=== PATIENT | male | born 1975 | race African-American/Black ===

== ENCOUNTER 2018-08-27 02:23 | Emergency (ER) | payer SELFPAY | END 2018-08-27 03:35 | disposition home or self-care (01) | LOC: ERS 02:23 | DX: H57.12 Ocular pain, left eye (principal) | CPT/HCPCS: 99283 ==

== ENCOUNTER 2019-04-15 22:41 | Inpatient (IN) | payer OTHER, SELFPAY ==
[2019-04-15] MEDS ORDERED: Ondansetron PF 4 MG/2 ML Vial ONE (22:48)
[2019-04-15] MEDS ORDERED: Fentanyl 100 MCG/2 ML VIAL ONE ×2 (22:48→23:45)
[2019-04-15] MEDS ORDERED: Adacel (T-DAP) 0.5 ML SYRINGE ONE (22:52)
[2019-04-15 22:56] LABS: #Basophils 0.1 thou/uL (0.0-0.2); #Eosinphils 0.1 thou/uL (0.0-0.7); #Lymphocytes 3.7 thou/uL (1.20-3.40); #Monocytes 1.2 thou/uL (0.11-0.59); #Neutrophils 5.9 thou/uL (1.40-6.50); %Eosinophils 0.8 % (0.0-10.0); %Lymphocytes 33.8 % (21.0-51.0); %Monocytes 11.1 % (0.0-10.0); %Neutrophils 53.3 % (42.0-75.0); Hemoglobin 12.7 g/dL (14.0-18.0); Mean Corpuscular HGB CONC 32.2 g/dL (32.0-36.0); Mean Corpuscular Hemoglobin 28.1 pg (27.0-31.0); Mean Corpuscular Volume 87.3 fL (78.0-98.0); Mean Platelet Volume 7.4 fL (7.4-10.4); Platelet Count 420 thou/uL (130-400); Red Blood Cell (RBC) Count 4.53 mill/uL (4.70-6.10)
[2019-04-15 23:01] LABS: INR-International Normal Ratio 1.2
[2019-04-15 23:02] LABS: PTT 20.3 SEC (22.9-36.1)
[2019-04-15 23:09] LABS: ALT (SGPT) 121 U/L (8-55); AST (SGOT) 72 U/L (5-34); Albumin 4.2 g/dL (3.5-5.0); Alkaline Phosphatase 40 U/L (40-110); Anion Gap 31 mmol/L (10-20); BUN (Urea Nitrogen) 8 mg/dL (8.9-20.6); Bilirubin, Total 0.5 mg/dL (0.2-1.2); Calc. Creatinine Clearance 0 mL/min (70-130); Calcium 9.3 mg/dL (7.8-10.44); Carbon Dioxide 10 mmol/L (22-29); Chloride 104 mmol/L (98-107); Estimated GFR-MDRD 45; Globulin 3.1 g/dL (2.4-3.5); Glucose 66 mg/dL (70-105); Potassium 4.3 mmol/L (3.5-5.1); Protein, Total 7.3 g/dL (6.0-8.3); Sodium 141 mmol/L (136-145)
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
[2019-04-15 23:48] LABS: Acetaminophen Less than 6.0 mcg/mL (10.0-30.0); Alcohol 164 mg/dL (Less than 10); Salicylate Less than 8.0 mg/dL (15.0-30.0)
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
[2019-04-15 23:50] LABS: Bacteria/HPF None Seen HPF (None Seen); Bilirubin Negative (Negative); Blood, Urine Trace (Negative); Clarity Clear (Clear); Glucose, Urine (Dipstick) Normal (Negative); Leukocyte Negative Leu/uL (Negative); Nitrite Negative (Negative); Protein, Urine (Dipstick) 50 mg/dL (Neg-Trace); RBC/HPF 0-3 HPF (0-3); Squamous Epithelial None Seen HPF (0-3); WBC/HPF 0-3 HPF (0-3)
[2019-04-15 23:51] LABS: Amphetamine Not Detected (NotDetected); Barbiturates Screen Not Detected (NotDetected); Benzodiazepine Screen Not Detected (NotDetected); Cocaine Metabolite Screen Not Detected (NotDetected); Medtox Control Line Valid? VALID (VALID); Medtox Reader # READER 4; Methadone Not Detected (NotDetected); Methamphetamine Not Detected (NotDetected); Opiate Screen Not Detected (NotDetected); Oxycodone Screen Not Detected (NotDetected); Phencyclidine (PCP) Not Detected (NotDetected); THC/Cannabinoid Screen Not Detected (NotDetected); Tricyclic Screen Not Detected (NotDetected)
[2019-04-16] MEDS ORDERED: Ondansetron PF 4 MG/2 ML Vial IVP PRN ×2 (00:25→13:37)
[2019-04-16] MEDS ORDERED: Dextrose 50% Abboject 50 ML SYRINGE SLOW IVP PRN (00:25)
[2019-04-16] MEDS ORDERED: Promethazine HCl 25 MG/ML VIAL IM PRN ×2 (00:25→13:20)
[2019-04-16] MEDS ORDERED: hydrALAZINE 20 MG/ML VIAL SLOW IVP PRN (00:25)
[2019-04-16] MEDS ORDERED: Dextrose 5% in Water 1,000 ML IV PRN (00:25)
[2019-04-16] MEDS ORDERED: HumaLOG 300 UNITS/3 ML VIAL SC PRN (00:25)
[2019-04-16] MEDS ORDERED: traMADol HCl 50 MG TAB PO PRN ×2 (00:28)
[2019-04-16] MEDS ORDERED: Fentanyl 100 MCG/2 ML VIAL ONE ×4 (00:39→13:24)
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
[2019-04-16 01:03] LABS: Hemoglobin 11.2 g/dL (14.0-18.0)
[2019-04-16] MEDS: Sodium Chloride 0.9% 1,000 ML IV SCH ×4 (02:08→16:22)
[2019-04-16] MEDS: Morphine 4 MG/ML VIAL SLOW IVP PRN ×2 (02:13→04:34)
[2019-04-16 03:39] VITALS: BMI 36.6
[2019-04-16 03:59] LABS: #Lymphocytes 0.8 thou/uL (1.20-3.40); #Monocytes 0.9 thou/uL (0.11-0.59); #Neutrophils 9.2 thou/uL (1.40-6.50); %Basophils 0.3 % (0.0-1.0); %Eosinophils 0.1 % (0.0-10.0); %Lymphocytes 7.1 % (21.0-51.0); %Monocytes 8.6 % (0.0-10.0); %Neutrophils 83.9 % (42.0-75.0); Hemoglobin 11.3 g/dL (14.0-18.0); Mean Corpuscular HGB CONC 32.5 g/dL (32.0-36.0); Mean Corpuscular Volume 86.4 fL (78.0-98.0); Mean Platelet Volume 7.3 fL (7.4-10.4); Platelet Count 349 thou/uL (130-400); Red Blood Cell (RBC) Count 4.05 mill/uL (4.70-6.10)
[2019-04-16 04:24] LABS: Anion Gap 13 mmol/L (10-20); BUN (Urea Nitrogen) 7 mg/dL (8.9-20.6); Calc. Creatinine Clearance 91 mL/min (70-130); Calcium 7.8 mg/dL (7.8-10.44); Carbon Dioxide 22 mmol/L (22-29); Chloride 108 mmol/L (98-107); Estimated GFR-MDRD 56; Glucose 103 mg/dL (70-105); Phosphorus 3.9 mg/dL (2.3-4.7); Potassium 4.9 mmol/L (3.5-5.1); Sodium 138 mmol/L (136-145)
[2019-04-16] MEDS ORDERED: Acetaminophen 1,000 MG in Premix Bag 1 BAG IVPB SCH (06:00)
[2019-04-16] MEDS ORDERED: Senokot S 8.6-50 MG TAB PO SCH (09:00)
[2019-04-16] MEDS: Polyethylene Glycol 3350 17 GM Packet PO SCH (09:02)
[2019-04-16] MEDS: Acetaminophen 1,000 MG in Premix Bag 1 BAG IVPB SCH ×3 (09:02→20:36)
[2019-04-16] MEDS: Famotidine/PF 20 mg/2ml Vial SLOW IVP SCH ×2 (09:02→20:36)
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
[2019-04-16] MEDS ORDERED: Dexamethasone 20 MG/5 ML VIAL ONE (10:30)
[2019-04-16] MEDS ORDERED: Glycopyrrolate 0.2 MG/ML 5 ML SYRINGE ONE (10:30)
[2019-04-16] MEDS ORDERED: Rocuronium Bromide 10 MG/ML (10ML VIAL) ONE (10:30)
[2019-04-16] MEDS ORDERED: PHENYLEPHRINE-NS 100 MCG/ML 10 ML SYRINGE ONE (10:30)
[2019-04-16] MEDS ORDERED: Lidocaine 1% PF 5 ML VIAL ONE (10:30)
[2019-04-16] MEDS ORDERED: Ondansetron PF 4 MG/2 ML Vial ONE (10:30)
[2019-04-16] MEDS ORDERED: PROPOFOL 200 MG/20 ML VIAL ONE (10:30)
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
[2019-04-16] MEDS ORDERED: Phenylephrine HCL 10 MG/ML VIAL ONE (11:26)
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
[2019-04-16] MEDS ORDERED: PACU-Morphine 4MG/ML VIAL SLOW IVP PRN (13:20)
[2019-04-16] MEDS ORDERED: HYDROmorphone 2 MG/ML VIAL SLOW IVP PRN (13:20)
[2019-04-16] MEDS ORDERED: Ketorolac Tromethamine 30 MG/ML VIAL IVP PRN (13:20)
[2019-04-16] MEDS ORDERED: Promethazine HCl 25 MG/ML VIAL SLOW IVP PRN (13:20)
[2019-04-16] MEDS ORDERED: Meperidine HCl/PF 25 MG/ML VIAL SLOW IVP PRN (13:20)
[2019-04-16] MEDS ORDERED: Ondansetron HCl/PF 4 MG/2 ML Vial IVP PRN (13:20)
[2019-04-16] MEDS ORDERED: Morphine Sulfate 2 MG/ML SYRINGE SLOW IVP PRN (13:20)
[2019-04-16] MEDS ORDERED: Milk Of Magnesia 30 ML UDCUP PO PRN (13:37)
[2019-04-16] MEDS ORDERED: Ondansetron ODT 4 MG TAB PO PRN (13:37)
[2019-04-16] MEDS ORDERED: Acetaminophen 325 MG TAB PO PRN ×2 (13:37→23:59)
[2019-04-16] MEDS ORDERED: Bisacodyl 10 MG SUPP PR PRN (13:37)
[2019-04-16] MEDS ORDERED: Fleet Enema 133 ML BOT PR PRN (13:37)
[2019-04-16] MEDS ORDERED: Cepastat Lozenges 1 LOZ PO PRN (13:37)
[2019-04-16] MEDS ORDERED: traMADol HCl 50 MG TAB ONE (14:02)
[2019-04-16 14:29] LABS: Hemoglobin 11.5 g/dL (14.0-18.0); Platelet Count 371 thou/uL (130-400)
[2019-04-16] MEDS: CEFAZOLIN 2 GM in Premix Bag 1 BAG IVPB SCH (16:22)
[2019-04-16] MEDS: Ketorolac Tromethamine 30 MG/ML VIAL IVP SCH (19:31)
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
[2019-04-16] MEDS: Senokot S 8.6-50 MG TAB PO SCH (20:37)
[2019-04-16] MEDS: Gabapentin 300 MG CAP PO SCH (20:37)
[2019-04-16] MEDS: prednisoLONE 1% Ophth Susp 5 ml Bottle L EYE SCH (20:38)
[2019-04-16] MEDS: traMADol HCl 50 MG TAB PO SCH (20:46)
[2019-04-16] MEDS ORDERED: FLU VACC QS2019-20(6MOS UP)/PF 60 MCG/0.5 ML SYRINGE IM ONE (21:00)
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
[2019-04-17] MEDS: traMADol HCl 50 MG TAB PO SCH ×4 (01:09→20:26)
[2019-04-17] MEDS: Ketorolac Tromethamine 30 MG/ML VIAL IVP SCH ×4 (01:09→17:26)
[2019-04-17] MEDS: CEFAZOLIN 2 GM in Premix Bag 1 BAG IVPB SCH (01:10)
[2019-04-17 04:48] LABS: #Lymphocytes 0.7 thou/uL (1.20-3.40); #Monocytes 0.9 thou/uL (0.11-0.59); #Neutrophils 10.4 thou/uL (1.40-6.50); %Basophils 0.2 % (0.0-1.0); %Eosinophils 0.1 % (0.0-10.0); %Monocytes 7.3 % (0.0-10.0); %Neutrophils 86.5 % (42.0-75.0); Hemoglobin 9.3 g/dL (14.0-18.0); Mean Corpuscular HGB CONC 32.6 g/dL (32.0-36.0); Mean Corpuscular Hemoglobin 28.4 pg (27.0-31.0); Mean Corpuscular Volume 87.1 fL (78.0-98.0); Mean Platelet Volume 7.5 fL (7.4-10.4); Platelet Count 314 thou/uL (130-400); RBC Distribution Width 13.9 % (11.5-14.5); Red Blood Cell (RBC) Count 3.28 mill/uL (4.70-6.10)
[2019-04-17 05:14] LABS: Anion Gap 16 mmol/L (10-20); BUN (Urea Nitrogen) 12 mg/dL (8.9-20.6); Calc. Creatinine Clearance 96 mL/min (70-130); Calcium 7.5 mg/dL (7.8-10.44); Carbon Dioxide 19 mmol/L (22-29); Chloride 104 mmol/L (98-107); Estimated GFR-MDRD 60; Glucose 132 mg/dL (70-105); Phosphorus 3.5 mg/dL (2.3-4.7); Sodium 134 mmol/L (136-145)
[2019-04-17] MEDS: Sodium Chloride 0.9% 1,000 ML IV SCH (05:25)
[2019-04-17] MEDS: Acetaminophen 500 MG TAB PO SCH ×3 (05:25→17:36)
[2019-04-17 05:27] LABS: CK (CPK) 5859 U/L (30-200)
[2019-04-17] MEDS ORDERED: Acetaminophen 500 MG TAB PO SCH (06:00)
[2019-04-17] MEDS ORDERED: Sodium Bicarbonate 150 MEQ in Dextrose 5% in Water 1,000 ML IV SCH ×2 (07:00→14:54)
[2019-04-17] MEDS: Polyethylene Glycol 3350 17 GM Packet PO SCH (08:58)
[2019-04-17] MEDS: Senokot S 8.6-50 MG TAB PO SCH ×2 (08:58→20:25)
[2019-04-17] MEDS: Gabapentin 300 MG CAP PO SCH ×2 (08:59→20:25)
[2019-04-17] MEDS: Multivitamin W/ Minerals 1 TAB PO SCH (08:59)
[2019-04-17] MEDS: Ferrous Gluconate 324 MG TAB PO SCH ×2 (08:59→17:36)
[2019-04-17] MEDS: prednisoLONE 1% Ophth Susp 5 ml Bottle L EYE SCH ×5 (09:00→20:25)
[2019-04-17] MEDS: Enoxaparin Sodium 40 MG/0.4 ML SYRINGE SC SCH (09:01)
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
[2019-04-18] MEDS: Acetaminophen 500 MG TAB PO SCH ×5 (01:21→23:33)
[2019-04-18] MEDS: Ketorolac Tromethamine 30 MG/ML VIAL IVP SCH ×4 (01:21→17:39)
[2019-04-18] MEDS: traMADol HCl 50 MG TAB PO SCH ×5 (01:22→21:04)
[2019-04-18 05:09] LABS: Hemoglobin 7.3 g/dL (14.0-18.0); Mean Corpuscular HGB CONC 32.1 g/dL (32.0-36.0); Mean Corpuscular Hemoglobin 28.1 pg (27.0-31.0); Mean Corpuscular Volume 87.7 fL (78.0-98.0); Mean Platelet Volume 7.2 fL (7.4-10.4); Platelet Count 299 thou/uL (130-400); RBC Distribution Width 13.9 % (11.5-14.5); Red Blood Cell (RBC) Count 2.58 mill/uL (4.70-6.10); White Blood Cell (WBC) Count 11.4 thou/uL (4.8-10.8)
[2019-04-18 05:29] LABS: Anion Gap 14 mmol/L (10-20); BUN (Urea Nitrogen) 11 mg/dL (8.9-20.6); Calc. Creatinine Clearance 102 mL/min (70-130); Carbon Dioxide 28 mmol/L (22-29); Chloride 98 mmol/L (98-107); Estimated GFR-MDRD 64; Glucose 109 mg/dL (70-105); Magnesium 2.1 mg/dL (1.6-2.6); Potassium 4.6 mmol/L (3.5-5.1); Sodium 135 mmol/L (136-145)
[2019-04-18 05:55] LABS: CK (CPK) 11332 U/L (30-200)
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
[2019-04-18] MEDS: Ferrous Gluconate 324 MG TAB PO SCH ×2 (09:19→16:39)
[2019-04-18] MEDS: Ascorbic Acid 500 mg Chewable Tablet PO SCH ×2 (09:19→21:04)
[2019-04-18] MEDS: Senokot S 8.6-50 MG TAB PO SCH ×2 (09:19→21:03)
[2019-04-18] MEDS: Multivitamin W/ Minerals 1 TAB PO SCH (09:19)
[2019-04-18] MEDS: Polyethylene Glycol 3350 17 GM Packet PO SCH (09:20)
[2019-04-18] MEDS: Gabapentin 300 MG CAP PO SCH ×2 (09:20→21:04)
[2019-04-18] MEDS: prednisoLONE 1% Ophth Susp 5 ml Bottle L EYE SCH ×4 (09:45→21:05)
[2019-04-18] MEDS: Enoxaparin Sodium 40 MG/0.4 ML SYRINGE SC SCH (09:55)
[2019-04-18] MEDS: Sodium Chloride 0.9% 1,000 ML IV SCH ×3 (10:50→18:49)
--- NOTE | 2019-04-18 12:28 | PRG ---
DATE OF SERVICE: 04/18/2019 Mr. Ashraf has good pain control. He was able to get out of bed and ambulate with a walker. Vital signs; the patient is afebrile, pulse 119, respiratory rate 18, O2 saturation 97, and blood pressure 114/63. Laboratory shows hemoglobin 7.3, hematocrit 22.7. His creatine kinase 11,332. The patient is receiving 1 unit of packed red blood cells. He will continue with physical therapy. He will continue with hydration to help with the rhabdomyolysis and try to prevent any kidney problems. Probable discharge date either tomorrow or the day after. Job ID: [id number]
[2019-04-18] MEDS: Oxazepam 10 MG CAP PO SCH (21:14)
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
[2019-04-19] MEDS: Sodium Chloride 0.9% 1,000 ML IV SCH ×4 (01:21→15:26)
[2019-04-19] MEDS: traMADol HCl 50 MG TAB PO SCH ×4 (02:31→21:13)
[2019-04-19 04:31] LABS: Hemoglobin 6.9 g/dL (14.0-18.0); Mean Corpuscular HGB CONC 32.2 g/dL (32.0-36.0); Mean Corpuscular Hemoglobin 28.3 pg (27.0-31.0); Mean Corpuscular Volume 87.7 fL (78.0-98.0); Mean Platelet Volume 7.3 fL (7.4-10.4); Platelet Count 279 thou/uL (130-400); Red Blood Cell (RBC) Count 2.43 mill/uL (4.70-6.10); White Blood Cell (WBC) Count 8.2 thou/uL (4.8-10.8)
[2019-04-19 04:52] LABS: Anion Gap 11 mmol/L (10-20); BUN (Urea Nitrogen) 9 mg/dL (8.9-20.6); Calc. Creatinine Clearance 122 mL/min (70-130); Calcium 7.6 mg/dL (7.8-10.44); Carbon Dioxide 26 mmol/L (22-29); Chloride 104 mmol/L (98-107); Estimated GFR-MDRD 79; Glucose 100 mg/dL (70-105); Sodium 137 mmol/L (136-145)
[2019-04-19] MEDS: Oxazepam 10 MG CAP PO SCH ×3 (05:16→21:14)
[2019-04-19] MEDS: Acetaminophen 500 MG TAB PO SCH ×4 (05:16→22:37)
[2019-04-19 05:17] LABS: CK (CPK) 9904 U/L (30-200)
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
[2019-04-19] MEDS: Ferrous Sulfate 325 MG TAB PO SCH ×2 (09:27→18:34)
[2019-04-19] MEDS: Multivitamin W/ Minerals 1 TAB PO SCH (09:27)
[2019-04-19] MEDS: Thiamine 100 MG TAB PO SCH (09:28)
[2019-04-19] MEDS: Gabapentin 300 MG CAP PO SCH ×2 (09:28→21:14)
[2019-04-19] MEDS: Ascorbic Acid 500 mg Chewable Tablet PO SCH ×2 (09:28→21:14)
[2019-04-19] MEDS: Polyethylene Glycol 3350 17 GM Packet PO SCH (09:31)
[2019-04-19] MEDS: Senokot S 8.6-50 MG TAB PO SCH ×2 (09:32→21:14)
[2019-04-19] MEDS: Folic Acid 1 MG TAB PO SCH (09:35)
[2019-04-19] MEDS: Enoxaparin Sodium 40 MG/0.4 ML SYRINGE SC SCH (09:36)
[2019-04-19] MEDS: prednisoLONE 1% Ophth Susp 5 ml Bottle L EYE SCH ×4 (10:50→21:14)
[2019-04-19] MEDS: Ferrous Gluconate 324 MG TAB PO SCH (10:51)
[2019-04-19] MEDS: Cyclobenzaprine 10 MG TAB PO PRN ×2 (13:16→22:39)
[2019-04-19 14:29] LABS: Hemoglobin 7.6 g/dL (14.0-18.0)
--- NOTE | 2019-04-19 14:40 | PRG ---
DATE OF SERVICE: 04/19/2019 SUBJECTIVE: The patient has good pain control. He states that he does have some purulent drainage, where he has 1 staple from a laceration over the right middle knuckle, but otherwise is feeling good. He had 1 unit of blood infused yesterday because his hemoglobin was 7.3. When they inderjit his blood work this morning, his hemoglobin was 6.9, so the patient just finished receiving another unit of blood and they are going to draw another hemoglobin and hematocrit this afternoon. OBJECTIVE: VITAL SIGNS: The patient has been afebrile. His vital signs have been stable except for a little tachycardia. His last pulse rate was 126 and the last time it was 111. EXTREMITIES: The dressings have been changed. The patient does have small purulence over the dorsum of the right middle finger knuckle. The incisions over the right forearm and the right hip and thigh are healing well. PLAN: I explained to the patient we need to make sure that his blood count is going in the right direction, after which he can be discharged. He will follow up in the office with me in 2 weeks. Job ID: [id number]
[2019-04-19] MEDS ORDERED: Sulfameth/Trimethoprim DS 800-160mg TAB PO SCH (21:45)
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
[2019-04-20] MEDS: traMADol HCl 50 MG TAB PO SCH ×5 (02:47→20:25)
[2019-04-20] MEDS: Oxazepam 10 MG CAP PO SCH ×3 (03:59→20:26)
[2019-04-20] MEDS: Acetaminophen 500 MG TAB PO SCH ×3 (05:01→17:49)
[2019-04-20 05:16] LABS: Band 3 % (5-11); Eosinophils 1 % (0-10); Hemoglobin 7.8 g/dL (14.0-18.0); Lymphocytes 16 % (21-51); MDiff Complete? YES; Mean Corpuscular HGB CONC 32.3 g/dL (32.0-36.0); Mean Corpuscular Hemoglobin 28.4 pg (27.0-31.0); Mean Corpuscular Volume 87.9 fL (78.0-98.0); Mean Platelet Volume 7.3 fL (7.4-10.4); Monocytes 12 % (0-10); Neutrophil 68 % (42-75); Nucleated RBC 4 % (0); Platelet Count 347 thou/uL (130-400); Platelet Morphology Comment Appears Adequate; RBC Distribution Width 14.1 % (11.5-14.5); Red Blood Cell (RBC) Count 2.74 mill/uL (4.70-6.10); White Blood Cell (WBC) Count 9.4 thou/uL (4.8-10.8)
[2019-04-20 05:26] LABS: Anion Gap 11 mmol/L (10-20); BUN (Urea Nitrogen) 7 mg/dL (8.9-20.6); Calc. Creatinine Clearance 112 mL/min (70-130); Calcium 8.2 mg/dL (7.8-10.44); Carbon Dioxide 28 mmol/L (22-29); Chloride 101 mmol/L (98-107); Estimated GFR-MDRD 71; Glucose 87 mg/dL (70-105); Magnesium 1.7 mg/dL (1.6-2.6); Phosphorus 3.2 mg/dL (2.3-4.7); Sodium 136 mmol/L (136-145)
[2019-04-20 05:38] LABS: CK (CPK) 7110 U/L (30-200)
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
[2019-04-20] MEDS: Thiamine 100 MG TAB PO SCH (09:11)
[2019-04-20] MEDS: Folic Acid 1 MG TAB PO SCH (09:12)
[2019-04-20] MEDS: Ascorbic Acid 500 mg Chewable Tablet PO SCH ×2 (09:12→20:25)
[2019-04-20] MEDS: Gabapentin 300 MG CAP PO SCH ×3 (09:12→20:26)
[2019-04-20] MEDS: Multivitamin W/ Minerals 1 TAB PO SCH (09:12)
[2019-04-20] MEDS: Ferrous Sulfate 325 MG TAB PO SCH ×2 (09:12→17:49)
[2019-04-20] MEDS: Senokot S 8.6-50 MG TAB PO SCH ×2 (09:12→20:25)
[2019-04-20] MEDS: Sulfameth/Trimethoprim DS 800-160mg TAB PO SCH ×2 (09:13→20:26)
[2019-04-20] MEDS: Polyethylene Glycol 3350 17 GM Packet PO SCH (09:14)
[2019-04-20] MEDS: prednisoLONE 1% Ophth Susp 5 ml Bottle L EYE SCH ×4 (09:15→20:26)
[2019-04-20] MEDS: cloNIDine 0.1 MG TAB PO SCH ×3 (09:22→20:26)
[2019-04-20] MEDS: Enoxaparin Sodium 40 MG/0.4 ML SYRINGE SC SCH (09:24)
[2019-04-20] MEDS: Cyclobenzaprine 10 MG TAB PO PRN (10:44)
[2019-04-20] MEDS ORDERED: Morphine 4 MG/ML VIAL SLOW IVP SCH (10:45)
--- NOTE | 2019-04-20 10:49 | ULT ---
EXAM: Bilateral lower extremity venous Doppler US HISTORY: bilateral lower extremity edema and pain FINDINGS: Grayscale, color-flow, Doppler evaluation, spectral analysis of the bilateral lower extremities venou s structures is performed with 2-D imaging. The bilateral common femoral, superficial femoral, popliteal, posterior tibial, proximal greater saphenous and profunda femoral veins are imaged. There is normal luminal compressibility, flow, and augmentation in the visualized deep venous structu res of the bilateral lower extremities. IMPRESSION: No evidence of a deep vein thrombosis in either lower extremity.
--- NOTE | 2019-04-20 17:16 | PRG ---
DATE OF SERVICE: 04/20/2019 The patient states that he is wanting to go home. He has pain, but it is controlled with p.o. medication. The patient did have a temperature up to 100.2, but his last one, he was afebrile. Vital signs were stable. The CBC shows white count of 9.4, hemoglobin 7.8, and hematocrit 24.1. His creatine kinase is down to 7000. The small abscess over the right 3rd metacarpal region is open and draining. There is a small pack in it. His right thigh is swollen, but not tense and the patient is able to flex and extend his right knee with normal amount of discomfort considering his surgery. The patient can be discharged as far as I am concerned with Bactrim DS twice a day for a week. He will follow up in my office in a week. Job ID: [id number]
[2019-04-21] MEDS: Acetaminophen 500 MG TAB PO SCH ×4 (01:47→17:32)
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
[2019-04-21] MEDS: Oxazepam 10 MG CAP PO SCH ×2 (03:32→12:13)
[2019-04-21] MEDS: traMADol HCl 50 MG TAB PO SCH ×3 (03:32→15:14)
[2019-04-21] MEDS: cloNIDine 0.1 MG TAB PO SCH ×3 (03:33→15:16)
[2019-04-21 05:24] LABS: Anion Gap 13 mmol/L (10-20); BUN (Urea Nitrogen) 9 mg/dL (8.9-20.6); Calc. Creatinine Clearance 106 mL/min (70-130); Calcium 8.6 mg/dL (7.8-10.44); Carbon Dioxide 27 mmol/L (22-29); Chloride 98 mmol/L (98-107); Estimated GFR-MDRD 67; Glucose 107 mg/dL (70-105); Magnesium 1.7 mg/dL (1.6-2.6); Phosphorus 3.3 mg/dL (2.3-4.7); Sodium 134 mmol/L (136-145)
[2019-04-21 05:36] LABS: Band 8 % (5-11); Hemoglobin 7.8 g/dL (14.0-18.0); Lymphocytes 22 % (21-51); MDiff Complete? YES; Mean Corpuscular HGB CONC 32.5 g/dL (32.0-36.0); Mean Corpuscular Hemoglobin 28.5 pg (27.0-31.0); Mean Corpuscular Volume 87.9 fL (78.0-98.0); Mean Platelet Volume 7.1 fL (7.4-10.4); Monocytes 11 % (0-10); Neutrophil 59 % (42-75); Platelet Count 405 thou/uL (130-400); RBC Distribution Width 14.4 % (11.5-14.5); Red Blood Cell (RBC) Count 2.73 mill/uL (4.70-6.10); White Blood Cell (WBC) Count 9.2 thou/uL (4.8-10.8)
[2019-04-21 05:41] LABS: CK (CPK) 4369 U/L (30-200)
[2019-04-21] MEDS: Ascorbic Acid 500 mg Chewable Tablet PO SCH (08:29)
[2019-04-21] MEDS: Thiamine 100 MG TAB PO SCH (08:31)
[2019-04-21] MEDS: Multivitamin W/ Minerals 1 TAB PO SCH (08:31)
[2019-04-21] MEDS: Folic Acid 1 MG TAB PO SCH (08:31)
[2019-04-21] MEDS: Sulfameth/Trimethoprim DS 800-160mg TAB PO SCH (08:31)
[2019-04-21] MEDS: Gabapentin 300 MG CAP PO SCH ×2 (08:31→15:14)
[2019-04-21] MEDS: Ferrous Sulfate 325 MG TAB PO SCH ×2 (08:31→17:32)
[2019-04-21] MEDS: Senokot S 8.6-50 MG TAB PO SCH (08:37)
[2019-04-21] MEDS: Polyethylene Glycol 3350 17 GM Packet PO SCH (08:38)
[2019-04-21] MEDS: prednisoLONE 1% Ophth Susp 5 ml Bottle L EYE SCH ×2 (09:34→14:33)
[2019-04-21] MEDS: Enoxaparin Sodium 40 MG/0.4 ML SYRINGE SC SCH (09:34)
[2019-04-21] MEDS: Cyclobenzaprine 10 MG TAB PO PRN ×2 (09:34→17:32)
[2019-04-21 16:56] VITALS: BP 118/68; TEMP 99.3
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
== END 2019-04-21 18:05 | disposition home or self-care (01) | DRG 956 ==
LOC: ERS 22:41 → CCU 04-16 01:39 → EEVIPCON 04-16 01:39 → SURG A 04-16 15:44
PROVIDERS: ADMIT Surgery; ATTEND Surgery
PROC: 3E0234Z Introduction of Serum, Toxoid and Vaccine into Muscle, Percutaneous Approach (ICD-10-PCS; 2019-04-15)
PROC: 30233N1 Transfusion of Nonautologous Red Blood Cells into Peripheral Vein, Percutaneous Approach (ICD-10-PCS; 2019-04-15)
PROC: 0QH806Z Insertion of Intramedullary Internal Fixation Device into Right Femoral Shaft, Open Approach (ICD-10-PCS; principal; 2019-04-16)
PROC: 0PSK04Z Reposition Right Ulna with Internal Fixation Device, Open Approach (ICD-10-PCS; 2019-04-16)
PROC: 0X9J0ZZ Drainage of Right Hand, Open Approach (ICD-10-PCS; 2019-04-19)
DX: S72.34 Spiral fracture of shaft of femur (principal); S52.251B Displaced comminuted fracture of shaft of ulna, right arm, initial encounter for open fracture type I or II; N17.9 Acute kidney failure, unspecified; M62.82 Rhabdomyolysis; D62 Acute posthemorrhagic anemia; L02.511 Cutaneous abscess of right hand; E86.0 Dehydration; F10.129 Alcohol abuse with intoxication, unspecified; I10 Essential (primary) hypertension; Y90.6 Blood alcohol level of 120-199 mg/100 ml; R00.0 Tachycardia, unspecified; Z23 Encounter for immunization; W34.00XA Accidental discharge from unspecified firearms or gun, initial encounter
CPT/HCPCS: 36415; 36430; 71045; 72170; 76000; 80048; 80053; 80306; 80307; 81003; 81015; 82550; 83735; 84100; 85007; 85014; 85018; 85025; 85027; 85610; 85730; 86850; 86900; 86901; 87070; 87077; 87186; 87205; 90471; 90715; 93005; 93970; 96361; 96365; 96374; 96375; 96376; C1713; C1769; G0390; J0131; J0690; J1100; J1650; J1885; J2001; J2270; J2370; J2405; J2704; J3010; J7070; P9016; S0028

== ENCOUNTER 2019-04-28 13:31 | Inpatient (IN) | payer OTHER ==
[2019-04-28] MEDS ORDERED: Bacitracin 1 PK ONE (14:39)
[2019-04-28 15:00] LABS: #Eosinphils 0.1 thou/uL (0.0-0.7); #Lymphocytes 1.7 thou/uL (1.20-3.40); #Monocytes 0.8 thou/uL (0.11-0.59); #Neutrophils 6.7 thou/uL (1.40-6.50); %Basophils 0.4 % (0.0-1.0); %Eosinophils 0.8 % (0.0-10.0); %Lymphocytes 18.6 % (21.0-51.0); %Monocytes 8.5 % (0.0-10.0); %Neutrophils 71.7 % (42.0-75.0); Hemoglobin 9.7 g/dL (14.0-18.0); Mean Corpuscular HGB CONC 32.2 g/dL (32.0-36.0); Mean Corpuscular Hemoglobin 27.4 pg (27.0-31.0); Mean Corpuscular Volume 85.2 fL (78.0-98.0); Mean Platelet Volume 6.5 fL (7.4-10.4); Platelet Count 1006 thou/uL (130-400); RBC Distribution Width 16.2 % (11.5-14.5); Red Blood Cell (RBC) Count 3.52 mill/uL (4.70-6.10); White Blood Cell (WBC) Count 9.4 thou/uL (4.8-10.8)
[2019-04-28 15:08] LABS: ALT (SGPT) 104 U/L (8-55); AST (SGOT) 53 U/L (5-34); Albumin 3.9 g/dL (3.5-5.0); Alkaline Phosphatase 91 U/L (40-110); Anion Gap 16 mmol/L (10-20); Anisocytosis SLIGHT = 6-15 cells (100X) (0-5/hpf); BUN (Urea Nitrogen) 15 mg/dL (8.9-20.6); Bilirubin, Total 0.9 mg/dL (0.2-1.2); Calc. Creatinine Clearance 0 mL/min (70-130); Calcium 9.3 mg/dL (7.8-10.44); Carbon Dioxide 23 mmol/L (22-29); Chloride 104 mmol/L (98-107); Estimated GFR-MDRD 51; Globulin 3.3 g/dL (2.4-3.5); Glucose 117 mg/dL (70-105); MDiff Complete? YES; Platelet Morphology Comment Appears Increased; Polychromasia MODERATE = 3-4 cells (100X) (0-2/hpf); Potassium 4.9 mmol/L (3.5-5.1); Protein, Total 7.2 g/dL (6.0-8.3); Sodium 138 mmol/L (136-145); Target Cells SLIGHT = 2-5 cells (100X) (0-1/hpf)
--- NOTE | 2019-04-28 16:32 | RAD ---
XR Chest Pa Lat STANDARD History: Cough and night sweats Comparison: Chest radiograph April 15, 2019 Findings: Lungs are clear. No pneumothorax or effusion. Cardiac silhouette and mediastinal contours a re within normal limits. No acute osseous abnormality. Impression: No acute intrathoracic abnormality.
[2019-04-28] MEDS ORDERED: hydrALAZINE 20 MG/ML VIAL SLOW IVP PRN ×2 (16:52→20:59)
[2019-04-28] MEDS ORDERED: Dextrose 50% Abboject 50 ML SYRINGE SLOW IVP PRN ×2 (16:52→20:59)
[2019-04-28] MEDS ORDERED: Ondansetron PF 4 MG/2 ML Vial IVP PRN ×2 (16:52→21:00)
[2019-04-28] MEDS ORDERED: Dextrose 5% in Water 1,000 ML IV PRN ×2 (16:52→20:58)
[2019-04-28] MEDS ORDERED: traMADol HCl 50 MG TAB PO PRN ×4 (16:56→21:01)
[2019-04-28] MEDS ORDERED: Cyclobenzaprine 10 MG TAB PO PRN ×3 (16:56→21:01)
[2019-04-28] MEDS ORDERED: Sodium Chloride 0.9% 1,000 ML IV SCH (17:00)
[2019-04-28] MEDS ORDERED: Piperacillin/Tazobactam 3.375 GM in Sodium Chloride 0.9% 100 ML IVPB SCH (18:00)
[2019-04-28] MEDS ORDERED: Acetaminophen 500 MG TAB PO SCH (18:00)
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
[2019-04-28] MEDS ORDERED: Acetaminophen/Codeine 30-300mg Tablet PO PRN (19:01)
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
[2019-04-28 19:18] LABS: Bilirubin Negative (Negative); Blood, Urine Negative (Negative); Clarity Clear (Clear); Glucose, Urine (Dipstick) Normal (Negative); Leukocyte Negative Leu/uL (Negative); Nitrite Negative (Negative); Protein, Urine (Dipstick) 10 mg/dL (Neg-Trace); Urobilinogen Greater than 12 mg/dL (Less than 2)
[2019-04-28 20:28] VITALS: BMI 32.5
[2019-04-28 20:39] LABS: Lactic Acid 1.1 mmol/L (0.5-2.2)
[2019-04-28] MEDS ORDERED: Famotidine 20 MG TAB PO SCH (21:00)
[2019-04-28] MEDS: Famotidine 20 MG TAB PO SCH (21:13)
[2019-04-28] MEDS: Piperacillin/Tazobactam 3.375 GM in Sodium Chloride 0.9% 100 ML IVPB SCH (21:17)
[2019-04-28] MEDS: Sodium Chloride 0.9% 1,000 ML IV SCH (21:17)
[2019-04-29] MEDS: Acetaminophen 500 MG TAB PO SCH ×3 (00:02→12:00)
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
[2019-04-29 04:48] LABS: #Basophils 0.1 thou/uL (0.0-0.2); #Eosinphils 0.1 thou/uL (0.0-0.7); #Lymphocytes 2.4 thou/uL (1.20-3.40); #Monocytes 1.2 thou/uL (0.11-0.59); #Neutrophils 9.2 thou/uL (1.40-6.50); %Basophils 0.6 % (0.0-1.0); %Eosinophils 0.9 % (0.0-10.0); %Lymphocytes 18.3 % (21.0-51.0); %Monocytes 9.1 % (0.0-10.0); %Neutrophils 71.1 % (42.0-75.0); Hemoglobin 8.8 g/dL (14.0-18.0); Mean Corpuscular HGB CONC 33.3 g/dL (32.0-36.0); Mean Corpuscular Hemoglobin 28.6 pg (27.0-31.0); Mean Platelet Volume 6.4 fL (7.4-10.4); Platelet Count 811 thou/uL (130-400); RBC Distribution Width 16.1 % (11.5-14.5); Red Blood Cell (RBC) Count 3.08 mill/uL (4.70-6.10); White Blood Cell (WBC) Count 12.9 thou/uL (4.8-10.8)
[2019-04-29 05:08] LABS: Anion Gap 14 mmol/L (10-20); BUN (Urea Nitrogen) 15 mg/dL (8.9-20.6); Calc. Creatinine Clearance 89 mL/min (70-130); Calcium 8.3 mg/dL (7.8-10.44); Carbon Dioxide 19 mmol/L (22-29); Chloride 109 mmol/L (98-107); Estimated GFR-MDRD 63; Glucose 112 mg/dL (70-105); Potassium 4.5 mmol/L (3.5-5.1); Sodium 137 mmol/L (136-145)
[2019-04-29] MEDS: Piperacillin/Tazobactam 3.375 GM in Sodium Chloride 0.9% 100 ML IVPB SCH ×3 (05:10→15:34)
[2019-04-29] MEDS: Sodium Chloride 0.9% 1,000 ML IV SCH ×3 (07:41→12:05)
[2019-04-29] MEDS ORDERED: Promethazine HCl 25 MG/ML VIAL SLOW IVP PRN ×2 (07:57→08:59)
[2019-04-29] MEDS ORDERED: Ondansetron HCl/PF 4 MG/2 ML Vial IVP PRN ×2 (07:57→08:59)
[2019-04-29] MEDS ORDERED: Promethazine HCl 25 MG/ML VIAL IM PRN ×2 (07:57→08:59)
[2019-04-29] MEDS ORDERED: Fentanyl 100 MCG/2 ML VIAL ONE ×2 (08:29→09:02)
[2019-04-29] MEDS ORDERED: HYDROmorphone 2 MG/ML VIAL SLOW IVP PRN (08:59)
[2019-04-29] MEDS ORDERED: Aspirin 325 mg Enteric Coated Tablet PO SCH ×2 (09:00)
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
[2019-04-29] MEDS: Famotidine 20 MG TAB PO SCH (09:17)
[2019-04-29] MEDS ORDERED: Dexamethasone 20 MG/5 ML VIAL ONE (12:17)
[2019-04-29] MEDS ORDERED: PROPOFOL 200 MG/20 ML VIAL ONE (12:17)
[2019-04-29] MEDS ORDERED: Lidocaine 1% PF 5 ML VIAL ONE (12:17)
[2019-04-29] MEDS ORDERED: Ondansetron PF 4 MG/2 ML Vial ONE (12:17)
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
--- NOTE | 2019-04-29 14:16 | ULT ---
US Venous Doppler Bilat History: Lower extremity edema Comparison: Lower extremity ultrasound April 20, 2019 Findings: Real-time grayscale, color, and spectral analysis of the bilateral lower extremity venous s ystem was performed. The common femoral, femoral, proximal portions greater saphenous and deep femoral veins as well as the popliteal and posterior tibial veins were interrogated. Normal flow, augmentation, and compression. Impression: No deep venous thrombosis.
--- NOTE | 2019-04-29 14:17 | ULT ---
US Renal Bilateral STANDARD History: Obstruction Comparison: None. Findings: Real-time grayscale and color evaluation of the kidneys and urinary bladder was performed. Right kidney measures 10.9 x 5.1 x 5.4 cm and the left kidney measures 12.3 x 6.1 x 6.3 cm. The prevoid urinary bladder volume is 39 mL. No renal mass, hydronephrosis, or abnormal calcifications. Impression: No evidence for obstructive uropathy.
[2019-04-29 15:52] VITALS: BP 116/54; TEMP 97.4
[2019-04-29] MEDS ORDERED: FLU VACC QS2019-20(6MOS UP)/PF 60 MCG/0.5 ML SYRINGE IM ONE (21:00)
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
== END 2019-04-29 18:59 | disposition home or self-care (01) | DRG 580 ==
LOC: ERS 13:31 → SURG B 18:42 → ERS 18:42 → SURG B 18:56
PROVIDERS: ADMIT Specialist; ATTEND Specialist
PROC: 0JBJ0ZZ Excision of Right Hand Subcutaneous Tissue and Fascia, Open Approach (ICD-10-PCS; principal; 2019-04-29)
DX: L02.511 Cutaneous abscess of right hand (principal); M62.82 Rhabdomyolysis; N17.9 Acute kidney failure, unspecified; D62 Acute posthemorrhagic anemia; M65.841 Other synovitis and tenosynovitis, right hand; E87.5 Hyperkalemia; D47.3 Essential (hemorrhagic) thrombocythemia; M62.838 Other muscle spasm
CPT/HCPCS: 36415; 71046; 76770; 80048; 80053; 81003; 82550; 83605; 85025; 87040; 87070; 87077; 87186; 87205; 93005; 93970; 96360; 96361; J1100; J2001; J2405; J2543; J2704; J3010; J3490

== ENCOUNTER 2022-07-04 01:33 | Inpatient (IN) | payer SELFPAY ==
[2022-07-04] MEDS ORDERED: Morphine 4 MG/ML VIAL ONE (01:38)
[2022-07-04 01:56] LABS: #Eosinphils 0.2 thou/uL (0.0-0.7); #Lymphocytes 4.5 thou/uL (1.20-3.40); #Monocytes 1.1 thou/uL (0.11-0.59); #Neutrophils 3.4 thou/uL (1.40-6.50); %Basophils 0.4 % (0.0-1.0); %Eosinophils 2.6 % (0.0-10.0); %Lymphocytes 48.4 % (21.0-51.0); %Monocytes 11.7 % (0.0-10.0); %Neutrophils 36.9 % (42.0-75.0); Hemoglobin 15.3 g/dL (14.0-18.0); Mean Corpuscular HGB CONC 34.1 g/dL (32.0-36.0); Mean Corpuscular Hemoglobin 30.4 pg (27.0-31.0); Mean Platelet Volume 8.7 fL (7.4-10.4); Platelet Count 180 10x3/uL (130-400); RBC Distribution Width 13.5 % (11.5-14.5); Red Blood Cell (RBC) Count 5.03 mill/uL (4.70-6.10); White Blood Cell (WBC) Count 9.3 10x3/uL (4.8-10.8)
[2022-07-04] MEDS ORDERED: Lidocaine 1% w/Epinephrine 1:100K 20 ML VIAL ONE (02:05)
[2022-07-04 02:11] LABS: Prothrombin Time 13.8 sec (12.0-14.7)
[2022-07-04 02:18] LABS: ALT (SGPT) 70 U/L (8-55); AST (SGOT) 47 U/L (5-34); Albumin 4.5 g/dL (3.5-5.0); Alkaline Phosphatase 58 U/L (40-110); Anion Gap 26 mmol/L (10-20); BUN (Urea Nitrogen) 22 mg/dL (8.9-20.6); Bilirubin, Total 0.4 mg/dL (0.2-1.2); Calc. Creatinine Clearance 0 mL/min (70-130); Calcium 9.1 mg/dL (7.8-10.44); Carbon Dioxide 10 mmol/L (22-29); Chloride 106 mmol/L (98-107); Estimated GFR 42; Globulin 3.3 g/dL (2.4-3.5); Glucose 86 mg/dL (70-105); Lipase 41 U/L (8-78); Potassium 3.4 mmol/L (3.5-5.1); Protein, Total 7.8 g/dL (6.0-8.3); Sodium 139 mmol/L (136-145)
[2022-07-04 02:41] LABS: PTT 22.6 sec (22.9-36.1)
[2022-07-04] MEDS ORDERED: Dextrose 50% Abboject 50 ML SYRINGE SLOW IVP PRN (02:45)
[2022-07-04] MEDS ORDERED: hydrALAZINE 20 MG/ML VIAL SLOW IVP PRN (02:45)
[2022-07-04] MEDS ORDERED: Dextrose 5% in Water 1,000 ML IV PRN (02:45)
[2022-07-04] MEDS ORDERED: Ondansetron PF 4 MG/2 ML Vial IVP PRN (02:45)
[2022-07-04] MEDS ORDERED: Morphine 2 MG/ML VIAL SLOW IVP PRN (02:45)
[2022-07-04] MEDS ORDERED: traMADol HCl 50 MG TAB PO PRN (02:47)
[2022-07-04] MEDS: Sodium Chloride 0.9% 1,000 ML IV SCH ×2 (04:25→08:52)
[2022-07-04] MEDS: Acetaminophen 500 MG TAB PO SCH ×3 (04:27→13:05)
[2022-07-04] MEDS: traMADol HCl 50 MG TAB PO SCH ×3 (04:27→13:05)
[2022-07-04 05:00] VITALS: BMI 35.7
[2022-07-04 05:18] LABS: #Eosinphils 0.1 thou/uL (0.0-0.7); #Lymphocytes 1.1 thou/uL (1.20-3.40); #Monocytes 0.6 thou/uL (0.11-0.59); %Basophils 0.1 % (0.0-1.0); %Eosinophils 0.7 % (0.0-10.0); %Lymphocytes 14.6 % (21.0-51.0); %Monocytes 7.9 % (0.0-10.0); %Neutrophils 76.6 % (42.0-75.0); Hemoglobin 13.8 g/dL (14.0-18.0); Mean Corpuscular HGB CONC 34.9 g/dL (32.0-36.0); Mean Corpuscular Hemoglobin 30.8 pg (27.0-31.0); Mean Corpuscular Volume 88.3 fl (78.0-98.0); Mean Platelet Volume 8.2 fL (7.4-10.4); Platelet Count 160 10x3/uL (130-400); RBC Distribution Width 13.6 % (11.5-14.5); White Blood Cell (WBC) Count 7.8 10x3/uL (4.8-10.8)
[2022-07-04 05:40] LABS: Anion Gap 13 mmol/L (10-20); BUN (Urea Nitrogen) 19 mg/dL (8.9-20.6); Calc. Creatinine Clearance 77 mL/min (70-130); Calcium 8.8 mg/dL (7.8-10.44); Carbon Dioxide 23 mmol/L (22-29); Chloride 107 mmol/L (98-107); Estimated GFR 46; Glucose 86 mg/dL (70-105); Potassium 3.9 mmol/L (3.5-5.1); Sodium 139 mmol/L (136-145)
[2022-07-04 07:21] LABS: SARS-CoV-2 NAA Rapid Test Not Detected (NotDetected)
[2022-07-04 08:22] LABS: Lactic Acid 1.2 mmol/L (0.5-2.2)
[2022-07-04] MEDS ORDERED: Famotidine/PF 20 mg/2ml Vial SLOW IVP SCH (09:00)
[2022-07-04] MEDS ORDERED: TETANUS, DIPHTHERIA TOX,ADULT (TDVAX) 0.5 ML VIAL IM ONE (09:00)
[2022-07-04] MEDS ORDERED: Iopamidol 370 76% 100 ML VIAL ONE (10:40)
[2022-07-04 13:10] VITALS: BP 126/79; TEMP 98.2
== END 2022-07-04 16:15 | disposition home or self-care (01) | DRG 580 ==
LOC: ERS 01:33 → SURG B 02:48
PROVIDERS: ADMIT Surgery; ATTEND Surgery
PROC: 0WQ8XZZ Repair Chest Wall, External Approach (ICD-10-PCS; principal; 2022-07-04)
PROC: 0WQFXZZ Repair Abdominal Wall, External Approach (ICD-10-PCS; 2022-07-04)
DX: S21.112A Laceration without foreign body of left front wall of thorax without penetration into thoracic cavity, initial encounter (principal); D62 Acute posthemorrhagic anemia; E87.20 Acidosis, unspecified; S31.111A Laceration without foreign body of abdominal wall, left upper quadrant without penetration into peritoneal cavity, initial encounter; N18.30 Chronic kidney disease, stage 3 unspecified; W26.0XXA Contact with knife, initial encounter; S30.1XXA Contusion of abdominal wall, initial encounter; Z98.890 Other specified postprocedural states; Z20.822 Contact with and (suspected) exposure to COVID-19
CPT/HCPCS: 36415; 70486; 71045; 71260; 74177; 83605; 83690; 85610; 85730; 86850; 86900; 86901; G0390; J2270; J2272; J7050; Q9967; S0028; U0002